=== PATIENT | female | born 1995 | race African-American/Black ===

== ENCOUNTER 2021-06-24 05:19 | Emergency (ER) | payer SELFPAY ==
[~2021-06-24] VITALS: Ht 175.3 cm; Wt 99.8 kg
--- NOTE | 2021-06-24 05:37 | NUR ---
BIBFRIEND TO ER BED 4. AAOX4. NOT IN RESP DISTRESS. BROUGHT IN FOR R ANKLE PAIN AND SWELLING S/P INVERSION. PAIN IS 9/10. AWAITING MD FOR EVAL.
[2021-06-24] MEDS ORDERED: HYDROCODONE/APAP 10/325MG TABLET ONE (05:43)
[2021-06-24] MEDS ORDERED: ACETAMINOPHEN 325 MG TABLET PO ONE (06:00)
[2021-06-24] MEDS ORDERED: HYDROCODONE/APAP 10/325MG TABLET PO ONE (06:00)
[2021-06-24] MEDS ORDERED: IBUP-1955 PO (06:33)
[2021-06-24] MEDS ORDERED: HYDR-4275 PO (06:33)
--- NOTE | 2021-06-24 06:37 | NUR ---
EMT AT BED SIDE TO APPLY SPLINT
--- NOTE | 2021-06-24 07:22 | NUR ---
Patient discharged to home in stable condition. Written and verbal after care instructions given. Patient verbalizes understanding of instruction. Pt ambulatory with an aide of cruthches.
[2021-06-24 07:24] VITALS: BP 132/70
== END 2021-06-24 07:25 | disposition home or self-care (01) ==
LOC: ER 05:19
DX: S82.841A Displaced bimalleolar fracture of right lower leg, initial encounter for closed fracture (principal); X50.1XXA Overexertion from prolonged static or awkward postures, initial encounter; Y93.01 Activity, walking, marching and hiking; Y92.89 Other specified places as the place of occurrence of the external cause; Y99.8 Other external cause status
CPT/HCPCS: 73600-TC; 73620-TC